=== PATIENT | male | born 1975 | race American Indian/Alaskan Native ===

== ENCOUNTER 2018-08-29 11:24 | Emergency (ER) | payer MEDICAID ==
[~2018-08-29] VITALS: Ht 185.4 cm; Wt 113.6 kg
[2018-08-29 11:44] VITALS: BP 139/82
== END 2018-08-29 15:30 | disposition left against medical advice (07) ==
LOC: ER 11:24
DX: R10.32 Left lower quadrant pain (principal); Z53.21 Procedure and treatment not carried out due to patient leaving prior to being seen by health care provider

== ENCOUNTER 2019-09-09 03:39 | Emergency (ER) | payer MEDICAID, OTHER ==
[~2019-09-09] VITALS: Ht 185.4 cm; Wt 109.1 kg
[2019-09-09 03:41] VITALS: BP 135/96
== END 2019-09-09 04:40 | disposition home or self-care (01) ==
LOC: ER 03:40
DX: F15.90 Other stimulant use, unspecified, uncomplicated (principal); F17.200 Nicotine dependence, unspecified, uncomplicated
CPT/HCPCS: 99281

== ENCOUNTER 2020-07-07 03:14 | Emergency (ER) | payer SELFPAY ==
[~2020-07-07] VITALS: Ht 185.4 cm; Wt 122.7 kg
[~2020-07-07 03:14] MED LIST: HYDR-3965 PO
[2020-07-07 03:27] VITALS: BP 125/83
[2020-07-07] MEDS ORDERED: ibuprofen tablet 400 MG TABLET PO ONE (03:45)
== END 2020-07-07 04:01 | disposition home or self-care (01) ==
LOC: ER 03:15
DX: S89.92XA Unspecified injury of left lower leg, initial encounter (principal); F15.90 Other stimulant use, unspecified, uncomplicated; Z79.899 Other long term (current) drug therapy; Z87.891 Personal history of nicotine dependence; X50.1XXA Overexertion from prolonged static or awkward postures, initial encounter; Y93.89 Activity, other specified; Y92.89 Other specified places as the place of occurrence of the external cause; Y99.8 Other external cause status
CPT/HCPCS: 99282

== ENCOUNTER → 2021-03-06 | Emergency (ER) | payer MEDICAID ==
[~2021-03-06] VITALS: Ht 185.4 cm; Wt 123.3 kg
[~2021-03-06] MED LIST changes: -HYDR-3965 PO; +IBUP-1985 PO
[2021-03-06 10:53] VITALS: BP 153/101
== END | disposition home or self-care (01) ==
LOC: ER 10:01
DX: M75.31 Calcific tendinitis of right shoulder (principal); M25.511 Pain in right shoulder; F15.90 Other stimulant use, unspecified, uncomplicated; Z79.899 Other long term (current) drug therapy
CPT/HCPCS: 73030; 99283

== ENCOUNTER 2021-03-19 09:04 | Emergency (ER) | payer MEDICAID ==
[~2021-03-19] VITALS: Ht 185.4 cm; Wt 125.4 kg
[2021-03-19 09:13] VITALS: BP 138/97
[2021-03-19] MEDS ORDERED: dexamethasone 4mg tablet PO ONE (09:20)
[2021-03-19] MEDS ORDERED: ketorolac tromethamine 15mg/ml inj. IM ONE (09:20)
[2021-03-19] MEDS ORDERED: DEXAMETHASONE 6 MG TABLET PO ONE (09:25)
[2021-03-19] MEDS ORDERED: DEXA4TAB67 PO (09:29)
[2021-03-19] MEDS ORDERED: ARM1EACH89 (09:33)
[2021-03-19] MEDS ORDERED: NAPR-56 PO (10:04)
== END 2021-03-19 10:08 | disposition home or self-care (01) ==
LOC: ER 09:04
DX: G89.29 Other chronic pain (principal); M25.511 Pain in right shoulder; F15.10 Other stimulant abuse, uncomplicated
CPT/HCPCS: 96372; 99283; J1885; J8540

== ENCOUNTER 2022-03-23 14:44 | Emergency (ER) | payer MEDICAID ==
[~2022-03-23] VITALS: Ht 185.4 cm; Wt 113.0 kg
[~2022-03-23 14:44] MED LIST changes: +ARM1EACH89; +DEXA4TAB67 PO
[2022-03-23 15:00] VITALS: BP 149/87
== END 2022-03-23 19:51 | disposition left against medical advice (07) ==
LOC: ER 14:45
DX: J02.9 Acute pharyngitis, unspecified (principal); R05.9 Cough, unspecified; Z53.21 Procedure and treatment not carried out due to patient leaving prior to being seen by health care provider

== ENCOUNTER 2022-06-02 13:25 | Emergency (ER) | payer MEDICAID ==
[~2022-06-02] VITALS: Ht 185.4 cm; Wt 109.0 kg
[2022-06-02 14:32] VITALS: BP 148/96
[2022-06-02] MEDS ORDERED: ketorolac trometh. 30mg/ml inj. IM ONE (15:05)
[2022-06-02] MEDS ORDERED: orphenadrine citrate 60mg/2ml inj. IM ONE (15:05)
[2022-06-02] MEDS ORDERED: IBUP-1984 PO (15:08)
[2022-06-02] MEDS ORDERED: PRED20TA PO (15:08)
[2022-06-02] MEDS ORDERED: ORPH100T2 PO (15:08)
== END 2022-06-02 15:39 | disposition home or self-care (01) ==
LOC: ER 13:26
DX: S39.012A Strain of muscle, fascia and tendon of lower back, initial encounter (principal); F15.20 Other stimulant dependence, uncomplicated; Z88.4 Allergy status to anesthetic agent; V89.2XXA Person injured in unspecified motor-vehicle accident, traffic, initial encounter; Y93.89 Activity, other specified; Y92.89 Other specified places as the place of occurrence of the external cause; Y99.8 Other external cause status
CPT/HCPCS: 96372; 99284; J1885; J2360